=== PATIENT | male | born 1945 | race Caucasian/White ===

== ENCOUNTER 2020-04-15 13:45 | Inpatient (IN) ==
[2020-04-15 14:47] LABS: Bilirubin,Urine Negative (Negative); Blood,Urine Large (Negative); Clarity,Urine Cloudy (Clear); Color,Urine Yellow (Yellow); Glucose,Urine (UA) Normal (Normal); Ketones,Urine Negative (Negative); Leukocyte Esterase,Urine Small (Negative); Nitrite,Urine Negative (Negative); PH,Urine 5.5 pH Units (5.0-8.0); Protein,Urine >=300 mg/dL (Neg-Trace); Specific Gravity,Urine 1.025 (1.010-1.025); Urobilinogen,Urine Normal (Normal)
[2020-04-15 14:57] LABS: Amorphous Sediment,Urine Few per hpf (None-Few); Bacteria,Urine Few per hpf (None-Few); Hyaline Casts,Urine Few per lpf (None Seen); Mucus,Urine Few per lpf (None-Few); RBC,Urine 50-100 per hpf (0-3); Renal Epithelial Cells,Urine Few per hpf (None-Few); Squamous Epithelial Cell,Urine Few per hpf (None-Few); WBC,Urine 15-30 per hpf (0-3)
[2020-04-15 15:06] LABS: Basophils % 0.4 %; Eosinophils # 0.2 K/mcL (0.0-0.6); Eosinophils % 2.9 %; Hemoglobin 12.7 g/dL (12.9-16.9); Immature Granulocytes % 0.4 % (0-4); Lymphocytes # 3.4 K/mcL (0.6-4.6); Lymphocytes % 45.4 %; Mean Corpuscular HGB Conc 31.8 g/dL (31.6-35.5); Mean Corpuscular Hemoglobin 29.3 pg (28.0-33.3); Mean Corpuscular Volume 92.4 fL (83.0-100.0); Mean Platelet Volume 9.8 fL (9.4-12.4); Monocytes # 0.4 K/mcL (0.0-1.3); Monocytes % 5.9 %; Neutrophils # 3.4 K/mcL (1.6-8.9); Platelet Count 294 K/mcL (140-400); Red Blood Count 4.33 M/mcL (4.19-5.50); Red Cell Distribution Width 15.9 % (11.5-14.5); White Blood Count 7.5 K/mcL (4.3-11.1)
[2020-04-15 15:40] LABS: Alanine Aminotransferase 9 Units/L (7-52); Albumin 3.5 g/dL (3.5-5.7); Albumin/Globulin Ratio 0.9 (1.1-2.2); Alkaline Phosphatase 72 Units/L (34-104); Aspartate Amino Transferase 10 Units/L (13-39); BUN/Creatinine Ratio 14 (6-26); Bilirubin,Total 0.2 mg/dL (0.3-1.0); Blood Urea Nitrogen 18 mg/dL (8-23); Calcium 9.5 mg/dL (8.6-10.3); Carbon Dioxide 30 mEq/L (23-29); Chloride 103 mEq/L (98-107); Globulin 3.7 g/dL (2.4-3.5); Glucose 151 mg/dL (70-105); Osmolality,Calculated 311 (280-300); Potassium 4.1 mEq/L (3.5-5.1); Sodium 148 mEq/L (136-145); Total Protein 7.2 g/dL (6.4-8.9); eGFR For African Americans > 60 (> 60); eGFR For Non-African Americans 53 (> 60)
[2020-04-15] MEDS: 0.9 % Sodium Chloride 1,000 ML IVC SCH ×3 (16:01→18:39)
[2020-04-15] MEDS ORDERED: Ondansetron 4 MG/2 ML VIAL IVP PRN (16:13)
[2020-04-15] MEDS ORDERED: Acetaminophen 325 MG TABLET PO PRN (16:13)
[2020-04-15] MEDS ORDERED: Naloxone 0.4 MG/ML INJ IVP PRN (16:13)
[2020-04-15] MEDS ORDERED: *HR* Dextrose 50 % in Water (Vial) 50 ML VIAL IVP PRN (16:54)
[2020-04-15] MEDS ORDERED: D5% in Water 1,000 ML IVC PRN (16:54)
[2020-04-15] MEDS ORDERED: Dextrose Gel 15 GM/37.5 ML TUBE PO PRN ×2 (16:54)
[2020-04-16] MEDS: 0.9 % Sodium Chloride 1,000 ML IVC SCH (04:01)
[2020-04-16] MEDS: Insulin LISPRO 300 UNITS/3 ML VIAL SQ SCH ×3 (07:50→17:00)
[2020-04-16 07:59] LABS: Basophils % 0.4 %; Eosinophils # 0.3 K/mcL (0.0-0.6); Eosinophils % 4.1 %; Hematocrit 32.8 % (37.5-50.1); Hemoglobin 10.6 g/dL (12.9-16.9); Immature Granulocytes % 0.4 % (0-4); Lymphocytes # 3.3 K/mcL (0.6-4.6); Lymphocytes % 43.4 %; Mean Corpuscular HGB Conc 32.3 g/dL (31.6-35.5); Mean Corpuscular Hemoglobin 29.5 pg (28.0-33.3); Mean Corpuscular Volume 91.4 fL (83.0-100.0); Mean Platelet Volume 9.7 fL (9.4-12.4); Monocytes # 0.5 K/mcL (0.0-1.3); Monocytes % 7.2 %; Neutrophils # 3.3 K/mcL (1.6-8.9); Platelet Count 242 K/mcL (140-400); Red Blood Count 3.59 M/mcL (4.19-5.50); Red Cell Distribution Width 15.7 % (11.5-14.5); Segmented Neutrophils % 44.5 %; White Blood Count 7.5 K/mcL (4.3-11.1)
[2020-04-16 08:12] LABS: Alanine Aminotransferase 8 Units/L (7-52); Albumin 2.8 g/dL (3.5-5.7); Alkaline Phosphatase 57 Units/L (34-104); Aspartate Amino Transferase 9 Units/L (13-39); BUN/Creatinine Ratio 13 (6-26); Bilirubin,Total 0.2 mg/dL (0.3-1.0); Blood Urea Nitrogen 13 mg/dL (8-23); Calcium 7.8 mg/dL (8.6-10.3); Carbon Dioxide 28 mEq/L (23-29); Chloride 109 mEq/L (98-107); Globulin 2.8 g/dL (2.4-3.5); Glucose 108 mg/dL (70-105); Magnesium 1.7 mg/dL (1.6-2.6); Osmolality,Calculated 301 (280-300); Potassium 3.3 mEq/L (3.5-5.1); Sodium 145 mEq/L (136-145); Total Protein 5.6 g/dL (6.4-8.9); eGFR For African Americans > 60 (> 60); eGFR For Non-African Americans > 60 (> 60)
[2020-04-16] MEDS ORDERED: Potassium Chloride Elixir 20 MEQ/15 ML UDC PO ONE (09:19)
[2020-04-16] MEDS ORDERED: Bisacodyl 10 MG RECTAL SUPPOSITORY RC STA (10:49)
[2020-04-16] MEDS ORDERED: Lactulose Oral Soln 20 GM/30 ML UDC PO ONE (10:49)
[2020-04-16] MEDS ORDERED: cefTRIAXone 2,000 MG in Water for inj. (sterile) 20 ML IVP SCH (16:00)
[2020-04-16] MEDS ORDERED: CefTRIAXone 2,000 MG VIAL ONE (16:44)
[2020-04-16] MEDS ORDERED: cefTRIAXone 2,000 MG in Water for inj. (sterile) 20 ML IM SCH (18:24)
[2020-04-16] MEDS ORDERED: Lidocaine 1% 20 ML MDV INFILT ONE (18:36)
[2020-04-16] MEDS ORDERED: Lidocaine 1% 20 ML MDV ONE (18:40)
[2020-04-16] MEDS ORDERED: CefTRIAXone 2,000 MG VIAL IM ONE (19:00)
[2020-04-16] MEDS: Sennosides/Docusate Sodium TABLET PO SCH (19:56)
[2020-04-17] MEDS: Insulin LISPRO 300 UNITS/3 ML VIAL SQ SCH ×3 (07:54→16:33)
[2020-04-17] MEDS: Sennosides/Docusate Sodium TABLET PO SCH ×2 (09:17→19:44)
[2020-04-17] MEDS: Fluconazole 150 MG TABLET PO SCH (17:52)
[2020-04-18 06:44] VITALS: BP 163/81
[2020-04-18 07:41] LABS: Hematocrit 33.2 % (37.5-50.1); Hemoglobin 10.7 g/dL (12.9-16.9); Mean Corpuscular HGB Conc 32.2 g/dL (31.6-35.5); Mean Corpuscular Hemoglobin 29.1 pg (28.0-33.3); Mean Corpuscular Volume 90.2 fL (83.0-100.0); Mean Platelet Volume 9.1 fL (9.4-12.4); Platelet Count 253 K/mcL (140-400); Red Blood Count 3.68 M/mcL (4.19-5.50); Red Cell Distribution Width 15.6 % (11.5-14.5)
[2020-04-18 07:57] LABS: BUN/Creatinine Ratio 11 (6-26); Blood Urea Nitrogen 11 mg/dL (8-23); Calcium 9.3 mg/dL (8.6-10.3); Carbon Dioxide 31 mEq/L (23-29); Chloride 105 mEq/L (98-107); Glucose 118 mg/dL (70-105); Osmolality,Calculated 298 (280-300); Potassium 4.9 mEq/L (3.5-5.1); Sodium 144 mEq/L (136-145); eGFR For African Americans > 60 (> 60); eGFR For Non-African Americans > 60 (> 60)
[2020-04-18] MEDS: Insulin LISPRO 300 UNITS/3 ML VIAL SQ SCH (08:00)
[2020-04-18] MEDS: Fluconazole 150 MG TABLET PO SCH (09:55)
[2020-04-18] MEDS: Sennosides/Docusate Sodium TABLET PO SCH (09:55)
== END 2020-04-18 12:00 | disposition home health service (06) | DRG 698 ==
LOC: EMEROOPIK 13:45 → INPPIK 13:45
PROVIDERS: ADMIT Family Medicine; ATTEND Family Medicine

== ENCOUNTER 2020-05-21 15:04 | Inpatient (IN) ==
[2020-05-21] MEDS ORDERED: Ondansetron 4 MG/2 ML VIAL IVP ONE (15:34)
[2020-05-21] MEDS ORDERED: 0.9 % Sodium Chloride 1,000 ML IVC ONE ×2 (15:34→17:11)
[2020-05-21 16:24] LABS: Bilirubin,Urine Negative (Negative); Blood,Urine Moderate (Negative); Clarity,Urine Cloudy (Clear); Glucose,Urine (UA) Normal (Normal); Ketones,Urine Negative (Negative); Leukocyte Esterase,Urine Moderate (Negative); Nitrite,Urine Negative (Negative); PH,Urine 5.5 pH Units (5.0-8.0); Protein,Urine >=300 mg/dL (Neg-Trace); Specific Gravity,Urine 1.025 (1.010-1.025); Urobilinogen,Urine Normal (Normal)
[2020-05-21 16:26] LABS: Color,Urine Light Yellow (Yellow)
[2020-05-21 16:26] LABS: Basophils % 0.2 %; Eosinophils # 0.1 K/mcL (0.0-0.6); Eosinophils % 0.6 %; Hematocrit 32.8 % (37.5-50.1); Hemoglobin 10.6 g/dL (12.9-16.9); Immature Granulocytes % 0.4 % (0-4); Lymphocytes # 1.9 K/mcL (0.6-4.6); Lymphocytes % 11.9 %; Mean Corpuscular HGB Conc 32.3 g/dL (31.6-35.5); Mean Corpuscular Hemoglobin 29.9 pg (28.0-33.3); Mean Corpuscular Volume 92.4 fL (83.0-100.0); Mean Platelet Volume 9.5 fL (9.4-12.4); Monocytes # 0.7 K/mcL (0.0-1.3); Monocytes % 4.7 %; Neutrophils # 12.8 K/mcL (1.6-8.9); Platelet Count 347 K/mcL (140-400); Red Blood Count 3.55 M/mcL (4.19-5.50); Red Cell Distribution Width 17.7 % (11.5-14.5); Segmented Neutrophils % 82.2 %; White Blood Count 15.6 K/mcL (4.3-11.1)
[2020-05-21 16:29] LABS: INR 1.4; Prothrombin Time 15.8 Seconds (9.4-12.1)
[2020-05-21 16:30] LABS: Bacteria,Urine Moderate per hpf (None-Few); Mucus,Urine Few per lpf (None-Few); RBC,Urine 15-30 per hpf (0-3); Squamous Epithelial Cell,Urine Few per hpf (None-Few); WBC,Urine TNTC per hpf (0-3)
[2020-05-21 16:32] LABS: Activated Partial Thrombo Time 30.5 Seconds (26.0-36.0)
[2020-05-21 16:41] LABS: Albumin 3.5 g/dL (3.5-5.7); Bilirubin,Total 0.3 mg/dL (0.3-1.0); Calcium 8.5 mg/dL (8.6-10.3); Globulin 3.5 g/dL (2.4-3.5); Magnesium 0.9 mg/dL (1.6-2.6); Potassium 2.9 mEq/L (3.5-5.1)
[2020-05-21] MEDS ORDERED: Vancomycin 1,000 MG in D5% in Water 250 ML IVPB ONE ×2 (17:12→22:00)
[2020-05-21] MEDS ORDERED: Potassium Chloride 40 MEQ, Lidocaine 1% 2 ML in 0.9 % Sodium Chloride 500 ML IVPB ONE (17:34)
[2020-05-21] MEDS ORDERED: Ondansetron 4 MG/2 ML VIAL IVP PRN (18:18)
[2020-05-21] MEDS ORDERED: Naloxone 0.4 MG/ML INJ IVP PRN (18:18)
[2020-05-21] MEDS ORDERED: Acetaminophen 325 MG TABLET PO PRN (18:18)
[2020-05-21] MEDS ORDERED: Mag Hydrox/Al Hydrox/Simeth 30 ML UDC PO PRN (18:18)
[2020-05-21] MEDS ORDERED: Dextrose Gel 15 GM/37.5 ML TUBE PO PRN ×2 (18:30)
[2020-05-21] MEDS ORDERED: *HR* Dextrose 50 % in Water (Vial) 50 ML VIAL IVP PRN (18:30)
[2020-05-21] MEDS ORDERED: D5% in Water 1,000 ML IVC PRN (18:30)
[2020-05-21] MEDS ORDERED: Ipratropium/Albuterol Neb 3 ML IH PRN (18:36)
[2020-05-21] MEDS: Insulin LISPRO 300 UNITS/3 ML VIAL SQ SCH (22:00)
[2020-05-21] MEDS: 0.9 % Sodium Chloride 1,000 ML IVC SCH (22:30)
[2020-05-21] MEDS: Docusate Oral Soln 100 MG/10 ML UDC PO SCH (22:30)
[2020-05-22] MEDS: Piperacillin/Tazobactam 3.375 GM in 0.9 % Sodium Chloride Mini Bag 100 ML IVPB SCH ×2 (00:08→15:38)
[2020-05-22 05:42] LABS: Basophils % 0.2 %; Eosinophils # 0.2 K/mcL (0.0-0.6); Eosinophils % 2.3 %; Hematocrit 27.9 % (37.5-50.1); Hemoglobin 8.9 g/dL (12.9-16.9); Immature Granulocytes % 0.4 % (0-4); Lymphocytes # 1.9 K/mcL (0.6-4.6); Lymphocytes % 18.2 %; Mean Corpuscular HGB Conc 31.9 g/dL (31.6-35.5); Mean Corpuscular Hemoglobin 29.8 pg (28.0-33.3); Mean Corpuscular Volume 93.3 fL (83.0-100.0); Mean Platelet Volume 9.6 fL (9.4-12.4); Monocytes # 0.6 K/mcL (0.0-1.3); Monocytes % 5.4 %; Neutrophils # 7.7 K/mcL (1.6-8.9); Platelet Count 263 K/mcL (140-400); Red Blood Count 2.99 M/mcL (4.19-5.50); Red Cell Distribution Width 17.6 % (11.5-14.5); Segmented Neutrophils % 73.5 %; White Blood Count 10.4 K/mcL (4.3-11.1)
[2020-05-22 06:55] LABS: Calcium 7.6 mg/dL (8.6-10.3); Potassium 3.3 mEq/L (3.5-5.1)
[2020-05-22] MEDS ORDERED: Potassium Chloride Elixir 20 MEQ/15 ML UDC PO ONE (07:43)
[2020-05-22] MEDS: Docusate Oral Soln 100 MG/10 ML UDC PO SCH ×2 (08:01→22:25)
[2020-05-22] MEDS: polyethylene glycoL 3350 17 GM POWD.PACK PO SCH (08:01)
[2020-05-22] MEDS: Insulin LISPRO 300 UNITS/3 ML VIAL SQ SCH ×4 (08:05→22:25)
[2020-05-22] MEDS: 0.9 % Sodium Chloride 1,000 ML IVC SCH ×3 (08:10→16:50)
[2020-05-23] MEDS: 0.9 % Sodium Chloride 1,000 ML IVC SCH ×2 (01:50→09:43)
[2020-05-23 07:20] LABS: Basophils % 0.2 %; Eosinophils # 0.3 K/mcL (0.0-0.6); Eosinophils % 3.7 %; Hematocrit 27.4 % (37.5-50.1); Hemoglobin 8.7 g/dL (12.9-16.9); Immature Granulocytes % 0.3 % (0-4); Lymphocytes # 1.8 K/mcL (0.6-4.6); Lymphocytes % 20.7 %; Mean Corpuscular HGB Conc 31.8 g/dL (31.6-35.5); Mean Corpuscular Hemoglobin 29.6 pg (28.0-33.3); Mean Corpuscular Volume 93.2 fL (83.0-100.0); Mean Platelet Volume 9.8 fL (9.4-12.4); Monocytes # 0.3 K/mcL (0.0-1.3); Monocytes % 3.3 %; Neutrophils # 6.4 K/mcL (1.6-8.9); Platelet Count 212 K/mcL (140-400); Red Blood Count 2.94 M/mcL (4.19-5.50); Red Cell Distribution Width 17.6 % (11.5-14.5); Segmented Neutrophils % 71.8 %; White Blood Count 8.9 K/mcL (4.3-11.1)
[2020-05-23 07:35] LABS: Calcium 7.3 mg/dL (8.6-10.3); Magnesium 2.2 mg/dL (1.6-2.6); Potassium 3.4 mEq/L (3.5-5.1)
[2020-05-23] MEDS ORDERED: Potassium Chloride Elixir 20 MEQ/15 ML UDC PO ONE (08:00)
[2020-05-23] MEDS: Insulin LISPRO 300 UNITS/3 ML VIAL SQ SCH ×4 (09:36→21:25)
[2020-05-23] MEDS: Docusate Oral Soln 100 MG/10 ML UDC PO SCH ×2 (09:38→21:21)
[2020-05-23] MEDS: polyethylene glycoL 3350 17 GM POWD.PACK PO SCH (09:39)
[2020-05-23] MEDS ORDERED: Fluconazole 100 MG TABLET PO ONE (14:15)
[2020-05-24 07:52] VITALS: BP 131/77
[2020-05-24] MEDS: Insulin LISPRO 300 UNITS/3 ML VIAL SQ SCH (08:01)
[2020-05-24 08:22] LABS: Basophils % 0.2 %; Eosinophils # 0.3 K/mcL (0.0-0.6); Eosinophils % 5.1 %; Hematocrit 25.2 % (37.5-50.1); Immature Granulocytes % 0.5 % (0-4); Lymphocytes # 1.9 K/mcL (0.6-4.6); Mean Corpuscular HGB Conc 31.7 g/dL (31.6-35.5); Mean Corpuscular Hemoglobin 29.7 pg (28.0-33.3); Mean Corpuscular Volume 93.7 fL (83.0-100.0); Mean Platelet Volume 9.7 fL (9.4-12.4); Monocytes # 0.3 K/mcL (0.0-1.3); Monocytes % 5.8 %; Neutrophils # 3.1 K/mcL (1.6-8.9); Platelet Count 195 K/mcL (140-400); Red Blood Count 2.69 M/mcL (4.19-5.50); Red Cell Distribution Width 17.5 % (11.5-14.5); Segmented Neutrophils % 54.4 %; White Blood Count 5.7 K/mcL (4.3-11.1)
[2020-05-24 08:45] LABS: BUN/Creatinine Ratio 9 (6-26); Blood Urea Nitrogen 11 mg/dL (8-23); Calcium 7.7 mg/dL (8.6-10.3); Carbon Dioxide 26 mEq/L (23-29); Chloride 109 mEq/L (98-107); Glucose 103 mg/dL (70-105); Osmolality,Calculated 296 (280-300); Potassium 3.4 mEq/L (3.5-5.1); Sodium 143 mEq/L (136-145); eGFR For African Americans > 60 (> 60); eGFR For Non-African Americans 58 (> 60)
[2020-05-24] MEDS ORDERED: Potassium Chloride Elixir 20 MEQ/15 ML UDC PO ONE (08:54)
[2020-05-24] MEDS ORDERED: Fluconazole 100 MG TABLET PO SCH (09:00)
[2020-05-24] MEDS: Docusate Oral Soln 100 MG/10 ML UDC PO SCH (09:32)
[2020-05-24] MEDS: polyethylene glycoL 3350 17 GM POWD.PACK PO SCH (09:32)
== END 2020-05-24 11:40 | disposition other institution (70) | DRG 698 ==
LOC: EMEROOPIK 15:04 → INPPIK 15:04
PROVIDERS: ADMIT Family Medicine; ATTEND Family Medicine

== ENCOUNTER 2020-06-07 14:50 | Observation (INO) ==
[2020-06-07] MEDS ORDERED: 0.9 % Sodium Chloride 1,000 ML IVC ONE ×2 (15:12→16:25)
[2020-06-07 15:40] LABS: Basophils % 0.2 %; Eosinophils # 0.1 K/mcL (0.0-0.6); Eosinophils % 1.5 %; Hematocrit 32.7 % (37.5-50.1); Hemoglobin 10.1 g/dL (12.9-16.9); Immature Granulocytes % 0.7 % (0-4); Lymphocytes # 2.2 K/mcL (0.6-4.6); Lymphocytes % 24.4 %; Mean Corpuscular HGB Conc 30.9 g/dL (31.6-35.5); Mean Platelet Volume 10.2 fL (9.4-12.4); Monocytes # 0.5 K/mcL (0.0-1.3); Monocytes % 5.2 %; Neutrophils # 6.2 K/mcL (1.6-8.9); Platelet Count 369 K/mcL (140-400); Red Blood Count 3.37 M/mcL (4.19-5.50); Red Cell Distribution Width 18.3 % (11.5-14.5); White Blood Count 9.1 K/mcL (4.3-11.1)
[2020-06-07 15:51] LABS: INR 1.3; Prothrombin Time 15.3 Seconds (9.4-12.1)
[2020-06-07 16:09] LABS: Bilirubin,Urine Negative (Negative); Blood,Urine Large (Negative); Clarity,Urine Cloudy (Clear); Glucose,Urine (UA) Normal (Normal); Ketones,Urine Trace mg/dL (Negative); Leukocyte Esterase,Urine Moderate (Negative); Nitrite,Urine Negative (Negative); PH,Urine >=9.0 pH Units (5.0-8.0); Protein,Urine >=300 mg/dL (Neg-Trace); Urobilinogen,Urine Normal (Normal)
[2020-06-07 16:09] LABS: Alanine Aminotransferase 8 Units/L (7-52); Albumin 3.6 g/dL (3.5-5.7); Albumin/Globulin Ratio 0.9 (1.1-2.2); Alkaline Phosphatase 88 Units/L (34-104); Aspartate Amino Transferase 12 Units/L (13-39); BUN/Creatinine Ratio 18 (6-26); Bilirubin,Total 0.2 mg/dL (0.3-1.0); Blood Urea Nitrogen 54 mg/dL (8-23); Carbon Dioxide 28 mEq/L (23-29); Chloride 112 mEq/L (98-107); Creatine Kinase 9 Units/L (30-223); Globulin 3.9 g/dL (2.4-3.5); Glucose 129 mg/dL (70-105); Magnesium 2.3 mg/dL (1.6-2.6); Osmolality,Calculated 332 (280-300); Potassium 4.6 mEq/L (3.5-5.1); Sodium 153 mEq/L (136-145); Total Protein 7.5 g/dL (6.4-8.9); Troponin I < 0.03 ng/mL (< 0.04); eGFR For African Americans 26 (> 60); eGFR For Non-African Americans 21 (> 60)
[2020-06-07 16:10] LABS: Color,Urine Light Yellow (Yellow)
[2020-06-07 16:15] LABS: Bacteria,Urine Few per hpf (None-Few); RBC,Urine 30-50 per hpf (0-3); Squamous Epithelial Cell,Urine Few per hpf (None-Few); WBC,Urine TNTC per hpf (0-3)
[2020-06-07 16:16] LABS: Thyroid Stimulating Hormone 0.653 mcIU/mL (0.340-5.600)
[2020-06-07] MEDS ORDERED: cefTRIAXone 2,000 MG in 0.9 % Sodium Chloride Mini Bag 100 ML IVPB ONE (16:25)
[2020-06-07] MEDS ORDERED: 0.9 % Sodium Chloride 1,000 ML IVC SCH (16:30)
[2020-06-07] MEDS ORDERED: Naloxone 0.4 MG/ML INJ IVP PRN (17:42)
[2020-06-07] MEDS ORDERED: Acetaminophen 650 MG RECTAL SUPP RC PRN (17:44)
[2020-06-07] MEDS ORDERED: MOM Conc 10 ML UD.LIQ PO PRN (17:48)
[2020-06-07] MEDS ORDERED: Ondansetron 4 MG/2 ML VIAL IVP PRN (17:48)
[2020-06-07] MEDS ORDERED: Mag Hydrox/Al Hydrox/Simeth 30 ML UDC PO PRN (17:48)
[2020-06-07] MEDS ORDERED: Ipratropium/Albuterol Neb 3 ML IH PRN (17:50)
[2020-06-07] MEDS ORDERED: Dextrose Gel 15 GM/37.5 ML TUBE PO PRN ×2 (17:56)
[2020-06-07] MEDS ORDERED: *HR* Dextrose 50 % in Water (Vial) 50 ML VIAL IVP PRN (17:56)
[2020-06-07] MEDS ORDERED: D5% in Water 1,000 ML IVC PRN (17:56)
[2020-06-07] MEDS: Docusate Oral Soln 100 MG/10 ML UDC PO SCH (20:43)
[2020-06-07] MEDS: Insulin LISPRO 300 UNITS/3 ML VIAL SQ SCH (21:21)
[2020-06-08 06:56] LABS: Basophils % 0.3 %; Eosinophils # 0.3 K/mcL (0.0-0.6); Eosinophils % 3.9 %; Hemoglobin 8.5 g/dL (12.9-16.9); Immature Granulocytes % 0.7 % (0-4); Lymphocytes # 2.2 K/mcL (0.6-4.6); Lymphocytes % 31.4 %; Mean Corpuscular HGB Conc 30.4 g/dL (31.6-35.5); Mean Corpuscular Hemoglobin 29.9 pg (28.0-33.3); Mean Corpuscular Volume 98.6 fL (83.0-100.0); Monocytes # 0.4 K/mcL (0.0-1.3); Platelet Count 293 K/mcL (140-400); Red Blood Count 2.84 M/mcL (4.19-5.50); Segmented Neutrophils % 57.7 %; White Blood Count 6.9 K/mcL (4.3-11.1)
[2020-06-08 07:18] LABS: Calcium 8.4 mg/dL (8.6-10.3)
[2020-06-08] MEDS: Insulin LISPRO 300 UNITS/3 ML VIAL SQ SCH ×4 (07:46→19:57)
[2020-06-08] MEDS: Docusate Oral Soln 100 MG/10 ML UDC PO SCH ×2 (07:46→19:55)
[2020-06-08] MEDS: polyethylene glycoL 3350 17 GM POWD.PACK PO SCH (07:46)
[2020-06-09 06:53] VITALS: BP 104/62
[2020-06-09] MEDS: Insulin LISPRO 300 UNITS/3 ML VIAL SQ SCH ×2 (07:41→12:11)
[2020-06-09] MEDS: polyethylene glycoL 3350 17 GM POWD.PACK PO SCH (07:48)
[2020-06-09] MEDS: Docusate Oral Soln 100 MG/10 ML UDC PO SCH (07:48)
[2020-06-09 09:27] LABS: Hemoglobin 8.3 g/dL (12.9-16.9); Mean Corpuscular HGB Conc 31.9 g/dL (31.6-35.5); Mean Corpuscular Volume 93.9 fL (83.0-100.0); Mean Platelet Volume 10.1 fL (9.4-12.4); Platelet Count 271 K/mcL (140-400); Red Blood Count 2.77 M/mcL (4.19-5.50); Red Cell Distribution Width 17.5 % (11.5-14.5); White Blood Count 9.3 K/mcL (4.3-11.1)
[2020-06-09 10:27] LABS: Calcium 7.9 mg/dL (8.6-10.3); Potassium 3.4 mEq/L (3.5-5.1)
== END 2020-06-09 14:52 | disposition other institution (70) ==
LOC: EMEROOPIK 14:50 → INPPIK 14:50
PROVIDERS: ADMIT Family Medicine; ATTEND Family Medicine